=== PATIENT | female | born 1980 | race Caucasian/White ===

== ENCOUNTER 2017-10-20 08:23 | Observation (INO) | payer OTHER ==
[2017-10-15 13:45] LABS: BASOPHILS % 0.3 % (0.0-1.0); HEMATOCRIT 42.2 % (34.2-44.1); HEMOGLOBIN 13.6 g/dL (12.0-16.0); LYMPHOCYTES # (AUTO) 2.9 (1.0-3.2); LYMPHOCYTES % 26.9 % (18.0-39.1); MEAN CORPUSCULAR HEMOGLOBIN 28.3 pg (28-32); MEAN CORPUSCULAR HGB CONC 32.2 g/dL (31-35); MEAN CORPUSCULAR VOLUME 87.9 fL (81-99); MONOCYTES # (AUTO) 0.2 (0.2-0.8); MONOCYTES % 1.7 % (4.4-11.3); NEUTROPHILS # (AUTO) 7.6 (2.1-6.9); NEUTROPHILS % 70.8 % (38.7-80.0); PLATELET COUNT 338 x10e3/uL (140-360); RED CELL DISTRIBUTION WIDTH 13.7 % (11.7-14.4)
[2017-10-15 14:12] LABS: INR 0.95; PROTHROMBIN TIME 11.9 seconds (11.9-14.5)
[2017-10-15 14:13] LABS: PARTIAL THROMBOPLASTIN TIME 26.7 seconds (23.8-35.5)
[~2017-10-20] VITALS: Ht 180.3 cm; Wt 123.4 kg
[~2017-10-20 08:23] MED LIST: ACETAMINOPHEN500 MG PO; BUPIVACAINE 0.25% 30ML SDV INJ ONE; MEPERIDINE HCL INJ 50 MG/ML INJ ONE; PREDNISONE5 MG PO
--- NOTE | 2017-10-20 08:34 | Operative Report ---
DATE OF PROCEDURE: October 20, 2017 PREOPERATIVE DIAGNOSES: 1. Adenotonsillar hypertrophy. 2. Obstructive sleep apnea. POSTOPERATIVE DIAGNOSES: 1. Adenotonsillar hypertrophy. 2. Obstructive sleep apnea. PROCEDURE: Tonsillectomy and adenoidectomy. SIGNIFICANT FINDINGS: Tonsils are 4+/4+ bilaterally. Adenoids are mildly enlarged. ANESTHESIA: General endotracheal tube anesthesia. SPECIMENS REMOVED: Tonsils (adenoids were coblated). ESTIMATED BLOOD LOSS: Less than 1 mL. COMPLICATIONS: None. INDICATIONS: Patient is a 37-year-old white female with almost lifelong history of sensation of throat closure, loud snoring, difficulty swallowing, mild difficulty breathing. She does not experience frequent throat infections. She is a nonsmoker. Patient has ITP, under the care of a retail department manager. On examination, her tonsils are 4+/4+ bilaterally. She is scheduled for tonsillectomy and adenoidectomy for the treatment of severe adenotonsillar hypertrophy and obstructive sleep apnea. Risks and complications of the procedures were thoroughly discussed with patient. They include infection, bleeding, scarring, failure to improve, persistent throat problems, need for additional operations, postoperative hemorrhage due to ITP, damage to teeth, gums, tongue, and lips, chronic throat pain, voice changes, numbness of the tongue, inability to taste, scarring of the pharynx resulting in permanent nasal obstruction, leakage of fluid through the nose when drinking liquids, need for blood transfusion, damage to surrounding nerves, blood vessels, and muscles. She fully understands and gives consent. DESCRIPTION OF PROCEDURE: Patient was taken to the operating room and placed supine on the operating table where general anesthesia was achieved through orotracheal intubation. Eyes were taped. Shoulder roll was placed. Head and body were draped. Table was turned 90 degrees with the head towards the surgeon. Decadron was administered. Adriana-Sai mouth gag was inserted without difficulty and placed in the suspension on the Chaidez stand. There was no evidence of bifid uvula, diastasis of the muscular uvulae, or a notched hard palate. The tonsils were extremely hypertrophied bilaterally. Red rubber catheters were then inserted into the nose and brought out through the mouth to retract the soft palate. The left tonsil was grasped with a tonsillar Allis clamp and was removed with the ArthroCare Coblator on a setting of 6 on cut mode, taking care to stay right around the capsule of the tonsil. Right tonsil was removed in the same way. Hemostasis was obtained with the Coblator on a setting of 3 on coag mode. The adenoids were visualized with the laryngeal mirror. They were mildly enlarged and were removed with the ArthroCare Coblator on a setting of 8 on cut mode, taking care to avoid trauma to the torus tubarius. Injection with 4 mL of 0.25% plain Marcaine was injected into the free edges of the anterior and posterior tonsillar pillars. Thorough irrigation was then performed. Stomach contents were suctioned with an NG tube. The red rubber catheters and Adriana-Sai mouth gag were then removed without difficulty, revealing no trauma to the teeth, gums, tongue, and lips. Patient was awakened in the operating room and taken to the recovery room in good condition. Job#: [id number] DR RUBIN
[2017-10-20] MEDS ORDERED: ONDANSETRON HCL INJ 2 MG/ML VIAL IV PRN (08:45)
[2017-10-20] MEDS ORDERED: LACTATED RINGER'S 1,000 ML IV SCH (08:45)
[2017-10-20] MEDS ORDERED: FENTANYL CITRATE/PF 100MCG/2 ML INJ ONE ×2 (08:59→17:57)
[2017-10-20 10:00] VITALS: BP 119/74
[2017-10-20 10:09] VITALS: BP 119/74
[2017-10-20] MEDS: HYDROCODONE/APAP 7.5MG-325MG 1 EA TAB PO PRN ×2 (10:45→16:35)
[2017-10-20 15:38] VITALS: BP 138/74
[2017-10-20] MEDS ORDERED: LIDOCAINE HCL 2% JELLY 5 ML TUBE ONE (17:38)
[2017-10-20] MEDS ORDERED: DEXAMETHASONE SOD PHOS INJ 4 MG/ML VIAL ONE (17:38)
[2017-10-20] MEDS ORDERED: PROPOFOL IV EMULSION 10 MG/ML 20 ML VIAL ONE (17:38)
[2017-10-20] MEDS ORDERED: SEVOFLURANE INHAL SOLN 250 ML PEN BTL ONE (17:38)
[2017-10-20] MEDS ORDERED: ROCURONIUM BROMIDE 10 MG/ML 5ML VIAL ONE (17:38)
[2017-10-20] MEDS ORDERED: LIDOCAINE HCL 2% LOCAL INJ 5 ML SDV VIAL INJ ONE (17:38)
[2017-10-20] MEDS ORDERED: ACETAMINOPHEN 1000 MG/100 ML IV ONE (17:38)
[2017-10-20] MEDS ORDERED: ONDANSETRON HCL INJ 2 MG/ML VIAL ONE (17:38)
[2017-10-20] MEDS ORDERED: MIDAZOLAM HCL 2 MG/2 ML VIAL ONE (17:57)
[2017-10-20 20:00] VITALS: BP 109/68
[2017-10-21 04:00] VITALS: BP 132/82
[2017-10-21] MEDS: HYDROCODONE/APAP 7.5MG-325MG 1 EA TAB PO PRN ×2 (04:32→09:15)
[2017-10-21 08:43] VITALS: BP 108/64
[2017-10-21] MEDS ORDERED: PREDNISONE 5 MG TAB PO SCH (09:00)
== END 2017-10-21 09:47 | disposition home or self-care (01) ==
LOC: OR 08:23 → IMCU 09:44
PROVIDERS: ADMIT Otolaryngology; ATTEND Otolaryngology
DX: J35.3 Hypertrophy of tonsils with hypertrophy of adenoids (principal); G47.33 Obstructive sleep apnea (adult) (pediatric); D69.3 Immune thrombocytopenic purpura; Z85.42 Personal history of malignant neoplasm of other parts of uterus
CPT/HCPCS: 36415; 42821; 85025; 85610; 85730; 88304; G0378 ×2; J1100; J2001 ×2; J2175; J2250; J2405; J7512